=== PATIENT | female | born 1990 | race Caucasian/White ===

== ENCOUNTER 2018-02-24 14:35 | Emergency (ER) | payer MEDICAID ==
[~2018-02-24] VITALS: Ht 167.6 cm; Wt 75.0 kg
[2018-02-24 15:03] VITALS: BP 106/60
[2018-02-24] MEDS ORDERED: TETanus/Pertussis (Acell)/Diphther VAC/PF (Tdap-Adult) 0.5ml syringe IM ONE (15:05)
== END 2018-02-24 15:29 | disposition home or self-care (01) ==
LOC: ER 14:36
DX: Z34.90 Encounter for supervision of normal pregnancy, unspecified, unspecified trimester (principal); Z23 Encounter for immunization
CPT/HCPCS: 90471; 90715; 99281; 99283